=== PATIENT | male | born 1940 | race Caucasian/White ===

== ENCOUNTER 2019-02-27 16:01 | Inpatient (IN) ==
[2019-02-27] MEDS ORDERED: ATIVAN PO ONE (16:19)
--- NOTE | 2019-02-27 17:50 | Diag Imaging Result Doc PS360 ---
EXAM: XRAY HIP UNILATERAL RT - 02/27/2019 HISTORY: ground level fall, R hip pain TECHNIQUE: Portable right hip two views COMPARISON: None. FINDINGS: There is a questionable nondisplaced intertrochanteric fracture of the femur. There is no dislocation identified. There are mild degenerative changes. IMPRESSION: Questionable nondisplaced intertrochanteric fracture of right femur. Electronically signed by Steven Solomon 02/27/2019 5:48 PM
[2019-02-27] MEDS ORDERED: ZOFRAN IV ONE (18:08)
[2019-02-27] MEDS ORDERED: DILAUDID IV ONE (18:08)
--- NOTE | 2019-02-27 18:41 | PROVIDER DOCUMENTATION ---
This chart was entered by Edith Arellano Scribe, acting as scribe for Shade Tavarez MD. HPI-Musculoskeletal Pain/Inj - GENERAL Stated Complaint: FALL, RIGHT HIP PAIN Time Seen by Provider: 02/27/19 16:04 Source: patient - HX OF PRESENT ILLNESS-MUSKULOSKELTAL Nature of Presenting Problem: Patient is a 78 year old male who presents to the ED via EMS with right hip and right thigh pain. Patient states he lost his balance and fell down three stairs. Does not report head injury. States he was unable to ambulate after fall. Quality of Pain: reports: aching Severity in ED: mild Onset/Duration: just prior to arrival Timing: still present Any recent injury?: Yes (fall) Locality of Occurance: Home Similar Symptoms Previously?: No Recently seen or treated by another doctor?: No - FALL INJURY Location of Pain/Injury: reports: lower extremity (right thigh), other (right hip) Pain Radiation: reports: no radiation Reason for Fall: reports: lost balance Symptoms prior to fall:: reports: none Loss of Consciousness: no loss of consciousness Injury Associated Symptoms: reports: trouble walking - HIP/PELVIS PAIN/INJURY Hip Pain Location: reports: hip (R) Pain Radiation: reports: no radiation Context / Method of Injury: reports: fall Associated Symptoms: reports: denies symptoms - LOWER EXTREMITY PAIN/INJURY Lower Extremities Pain: hip: right, thigh: right Context / Method of Injury: reports: fell Associated Symptoms: reports: denies symptoms Review of Systems - Adult - REVIEW OF SYSTEMS - ADULT Constitutional: reports: no symptoms reported Eyes: reports: no symptoms reported Ears, Nose, Mouth & Throat: reports: no symptoms reported Cardiovascular: reports: no symptoms reported Respiratory: reports: no symptoms reported Gastrointestinal: reports: no symptoms reported Genitourinary: reports: no symptoms reported Musculoskeletal: reports: see HPI, other (right hip and right thigh pain). denies: back pain, muscle aches, neck pain Integumentary: reports: no symptoms reported Neurological: reports: no symptoms reported Psychiatric: reports: no symptoms reported Endocrine: reports: no symptoms reported Hematologic/Lymphatic: reports: no symptoms reported Allergic/Immunologic: reports: no symptoms reported All Other Systems: Reviewed and Negative Past History - Adult - PAST MEDICAL HISTORY-ADULT Review of Records: reports: Old Records Reviewed, Nursing Assessment Review, Medications Reviewed, Social history reviewed & non-contributory. Major Childhood Illnesses: reports: denies history Cardiovascular: reports: HTN Respiratory: reports: denies history Gastrointestinal: reports: denies history Obstetrical/Gynecological: reports: denies history Genitourinary: reports: denies history Musculoskeletal: reports: denies history Neurological: reports: denies history Psychiatric: reports: denies history Endocrine/Immune: reports: denies history Other Conditions: reports: denies history - PRIOR SURGERIES/PROCEDURES Surgical/Procedure History: reports: reviewed, not pertinent - IMMUNIZATION STATUS Childhood Immunizations: See Nurse Assessment Flu Vaccine: See Nurse Assessment - FAMILY HISTORY Family History: reviewed, not pertinent - SOCIAL HISTORY Smoking: cigarettes (former) Substance Use: denies Living Situation: family Physical Exam-Injury Related - Physical Exam-Injury Related Initial Vital Signs Reviewed: Yes General Appearance: alert, no apparent distress. negative: lethargic, slow to respond Head, Ears, Nose, Mouth & Throat: normocephalic/atraumatic, moist mucous membr anes. negative: angioedema, hearing deficit Respiratory: chest non-tender, lungs clear, normal breath sounds. negative: rhonchi, wheezing Cardiovascular: normal peripheral pulses, regular rate, rhythm. negative: tachycardia, systolic murmur Extremity: normal range of motion, non-tender, other (2 + posterior tibial pulse bilaterally). negative: deformity, erythema, swelling Integumentary: normal color, warm/dry. negative: ecchymosis, pallor, rash, abrasion, laceration Neurologic: grossly normal, other (resting tremors.). negative: aphasia, facial droop Psych/Mental Status: normal mood/affect, oriented x 3. negative: anxious Progress - PLAN OF CARE/RESULTS Progress/Plan/Lab Results: Laboratory Results - last 24 hr 02/27/19 02/27/19 02/27/19 18:40 18:40 18:40 WBC 7.98 RBC 4.60 L Hgb 14.4 Hct 40.3 L MCV 87.6 MCH 31.3 H MCHC 35.7 RDW Std Deviation 13.3 Plt Count 158 MPV 9.8 Immature Gran % (Auto) 0.3 Neut % (Auto) 63.6 Lymph % (Auto) 26.3 Coal % (Auto) 6.9 Eos % (Auto) 1.8 Baso % (Auto) 1.1 H Immature Gran # (Auto) 0.02 Neut # (Auto) 5.08 Lymph # (Auto) 2.10 Coal # (Auto) 0.55 Eos # (Auto) 0.14 Baso # (Auto) 0.09 PT 14.2 INR 1.02 PTT (Actin FS) 33.4 Sodium 144 Potassium 4.0 Chloride 107 Carbon Dioxide 27 Anion Gap 10 BUN 11 Creatinine 0.8 Estimated GFR/1.73 m2 > 60 BUN/Creatinine Ratio 14 Glucose 124 H Calculated Osmolality 288 Calcium 8.3 L Total Bilirubin 0.55 AST 16 ALT 18 Alkaline Phosphatase 76 Total Protein 6.1 L Albumin 3.8 Globulin 2.3 Albumin/Globulin Ratio 1.7 Orders Category Date Time Status Admit - [facility] Routine AdmDCTranf 02/27/19 22:28 Active Activity - Up with Assistance ORDERED Care 02/27/19 22:28 Active Intake and Output-Strict ORDERED Care 02/27/19 22:28 Active Nursing- MD Consult Request ROUTINE Care 02/27/19 22:28 Completed Vital Signs Order Q 8-HR ASSESS Care 02/27/19 22:28 Active Z-Document. for Tele Applied ORDERED Care 02/27/19 22:28 Completed Physician/Provider Consults Routine Cons 02/27/19 22:28 Ordered NPO Diet 02/28/19 00:[address] PELVIS W/O CONTRAST [CT] Stat Exams 02/27/19 18:10 Completed XRAY HIP UNILATERAL RT [RAD] Stat Exams 02/27/19 16:10 Completed CBC WITH DIFF [HEME] Stat Lab 02/27/19 18:40 Completed COMPREHENSIVE METABOLIC PANEL [CHEM] Stat Lab 02/27/19 18:40 Completed PT [PROTIME WITH INR] [COAG] Stat Lab 02/27/19 18:40 Completed PTT [COAG] Stat Lab 02/27/19 18:40 Completed Albuterol 2.5MG/Ipratrop 0.5MG [Duoneb (A & A)] Med 02/27/19 22:28 Active 3 ml INH Q4H PRN PRN Hydromorphone [Dilaudid] Med 02/27/19 18:08 Discontinued 0.5 mg IV NOW ONE Hydromorphone [Dilaudid] Med 02/27/19 22:28 Discontinued 0.5 mg IV Q4H PRN PRN Lorazepam [Ativan] Med 02/27/19 16:19 Discontinued 1 mg PO NOW ONE Ondansetron [Zofran] Med 02/27/19 18:08 Discontinued 4 mg IV NOW ONE Ondansetron [Zofran] Med 02/27/19 22:28 Active 4 mg IV Q4H PRN PRN Aerosol Treatments Routine Oth 02/27/19 22:28 Completed Aerosol Treatments Stat Oth 02/27/19 22:28 Completed Telemetry [OM.EQ] Routine Oth 02/27/19 22:28 Active Transfer/Admit Order [TRANSFER] Routine Transfer 02/27/19 20:39 Completed Result Diagrams: 02/27/19 18:40 02/27/19 18:40 - REASSESSMENT Reassessment #1 Time Reassessed: 06:20 Status: unchanged (Radiologist indeterminate re: ? intertroch fx on plain imaging: CT ordered. pt given analgesic per his request) Reassessment #2 Time Reassessed: 18:40 Status: unchanged (CT confirms intertroch fx: disc'd w/ Dr. Weaver who agreed to consult, Hospitalist to admit) - CHANGE OF SHIFT REPORT (ED Provider) 1 Report Given and Care Transferred to:: Dr. Case Time of Transfer: 19:00 Items Pending: Physician Consult/Arrival Departure - Departure Date of Disposition Decision: 02/27/19 Time of Disposition Decision: 18:48 DIAGNOSIS: Intertrochanteric fracture of right hip Disposition: ADMITTED INPATIENT 09 Certified Medical Emergency: Emergent Condition: Stable - Critical Care Note This patient required my direct & personal management of CC.: No Attestation - Physician/ HEBER Attestation The physician spent face to face time with patient:: Yes Advanced Practice Provider documentation review:: Supervising physician onsite and consulted in the evaluation and care of this patient. The physician did have a face to face encounter with the patient. This chart was documented by the indicated scribe, (Edith Arellano Scribe) and accurately reflects the services I performed and decisions made by me, Shade Tavarez MD, as attested by the provider's signature.
[2019-02-27 18:52] LABS: HEMOGLOBIN 14.4 g/dL (14.0-18.0); WBC 7.98 X1000 (4.8-10.8)
[2019-02-27 18:53] LABS: BASO# 0.09 X1000 (0.0-0.2); BASO% 1.1 % (0.0-0.8); EOS# 0.14 X1000 (0.0-0.7); EOS% 1.8 % (0.0-10.0); HEMATOCRIT 40.3 % (42.0-52.0); IMM GRAN# 0.02 X1000 (0.0-0.04); IMM GRAN% 0.3 % (0.0-0.5); LYMPH% 26.3 % (20.5-51.1); MCH 31.3 PG (27-31); MCHC 35.7 g/dL (33-37); MCV 87.6 FL (81-99); MONO# 0.55 X1000 (0.11-0.59); MONO% 6.9 % (1.7-9.3); MPV 9.8 FL (7.4-10.4); NEUT# 5.08 X1000 (1.4-6.5); NEUT% 63.6 % (42.2-75.2); PLT 158 X1000 (130-400); RDW 13.3 % (11.5-14.5)
--- NOTE | 2019-02-27 18:54 | Diag Imaging Result Doc PS360 ---
EXAM: CT PELVIS W/O CONTRAST - 02/27/2019 HISTORY: r.o right intertroch hip fx TECHNIQUE: CT bony pelvis without contrast COMPARISON: 02/27/2019 right hip radiographs FINDINGS: There is an intertrochanteric fracture of the right femur. The fracture does not appear substantially displaced. Between the trochanters, the fracture is primarily anteriorly located. There is no dislocation identified. There are mild degenerative changes at the bilateral hips. IMPRESSION: Intertrochanteric fracture of right femur. This exam was performed using automated exposure control, adjustment of mA or kV according to patient size, and/or use of iterative reconstruction technique. Electronically signed by Steven Solomon 02/27/2019 6:52 PM
[2019-02-27 19:01] LABS: INR 1.02; PROTIME 14.2 Seconds (11.0-16.0); PTT 33.4 Seconds (22.3-41.8)
[2019-02-27 19:26] LABS: AGAP 10; BUN 11 mg/dL (8-22); CALCIUM 8.3 mg/dL (8.8-10.2); CHLORIDE 107 mmol/L (98-107); COSMO 288; CREATININE 0.8 mg/dL (0.7-1.2); ESTIMATED GFR > 60; GLUCOSE 124 mg/dL (70-104); SODIUM 144 mmol/L (136-145); TCO2 27 mmol/L (25-35)
[2019-02-27 19:27] LABS: ALB/GLOB RATIO 1.7; ALBUMIN 3.8 g/dL (3.5-5.0); ALKALINE PHOSPHATASE 76 U/L (32-122); GOT 16 U/L (10-34); GPT 18 U/L (10-44); TOTAL BILIRUBIN 0.55 mg/dL (0.20-1.00); TOTAL PROTEIN 6.1 g/dL (6.3-8.3)
--- NOTE | 2019-02-27 22:05 | HISTORY AND PHYSICAL ---
PRIMARY CARE PHYSICIAN: Dr. Radha Urbano. CHIEF COMPLAINT: Status post fall, right hip region pain. HISTORY OF PRESENTING ILLNESS: A 78-year-old male, with a history of coronary artery disease, hypertension, essential tremors, who apparently fell off his doorstep. He states that he lost his balance and landed on his right hip region. He developed a moderate amount of pain. He was brought to the emergency department. He had imaging done which did show intertrochanteric fracture of the right femur. Case was discussed with Orthopedics who recommended admission for further management. At the time of my examination, patient denied any headache, fever, chills, chest pain, shortness of breath, hemoptysis, or any weight changes, but complained right hip region pain. PAST MEDICAL HISTORY: Includes: 1. Coronary artery disease. 2. Hypertension. 3. Essential tremors. PAST SURGICAL HISTORY: 1. Coronary stent. 2. Appendectomy. ALLERGIES: Plavix and IV dye. CURRENT MEDICATIONS: Include: 1. Albuterol inhaler q.4 hours. 2. Aspirin 325 mg p.o. daily. 3. Isosorbide mononitrate 30 mg p.o. b.i.d. 4. Primidone 100 mg p.o. b.i.d. 5. Propranolol 120 mg p.o. b.i.d. 6. Flomax 0.4 mg p.o. daily. 7. Tramadol 50 mg p.o. t.i.d. SOCIAL HISTORY: 60+ pack year history of smoking. Denies any history of alcohol or illicit drug use. FAMILY HISTORY: No history of coronary artery disease. REVIEW OF SYSTEMS: A 14 point review of systems is as in HPI. Other systems negative. PHYSICAL EXAMINATION: GENERAL: Cooperative, friendly male. He is resting more comfortably now. VITAL SIGNS: Temperature 98.4 degrees, pulse 59, respirations 18, blood pressure 170/71. HEENT: Extraocular movements intact. PERRLA. NECK: No masses. CHEST: Clear to auscultation. CARDIOVASCULAR: Regular rate and rhythm. ABDOMEN: Soft. Positive bowel sounds. EXTREMITY: Right hip region tenderness. NEUROLOGIC: He is awake, alert, oriented x3. : No bladder distention. SKIN: Warm. LABORATORIES AND STUDIES: WBC 7.98, hemoglobin 14.4, hematocrit 40.3, platelets 158,000. Sodium 144, potassium 4.0, chloride 107, CO2 27, BUN is 11, creatinine 0.8, glucose is 124. Pelvic CT shows intertrochanteric fracture of the right femur. ASSESSMENT: A 78-year-old male with a history of coronary artery disease, hypertension, and essential tremors, who apparently lost his balance and fell off his doorstep. He landed on his right hip region. He was brought to the emergency department. He had imaging done which did show intertrochanteric fracture of the right femur. His case was discussed with Orthopedics who recommended the patient be admitted for further management. ASSESSMENT: 1. Status post mechanical fall. 2. Intertrochanteric fracture of the right femur. 3. Coronary artery disease. 4. Hypertension. 5. Essential tremor. PLAN: 1. We will admit patient to medical floor with telemetry. 2. We will keep patient n.p.o. and do preoperative clearance. 3. Continue with adequate pain control. 4. We will consult Orthopedics. 5. We will hold his home medications for now. 6. We will start deep venous thrombosis prophylaxis after surgery. 7. We will continue to follow and reassess, and make further recommendations based on patient's clinical course. cc: Davonte Gutierrez MD
[2019-02-27] MEDS ORDERED: ZOFRAN IV PRN (22:28)
[2019-02-27] MEDS ORDERED: DUONEB (A & A) INH PRN (22:28)
[2019-02-27] MEDS: DILAUDID IV PRN (22:51)
[2019-02-28] MEDS: DILAUDID IV PRN ×2 (03:44→08:16)
[2019-02-28] MEDS ORDERED: STERILE WATER INJ. ONE (06:39)
--- NOTE | 2019-02-28 06:52 | ORTHOPAEDICS CONSULTATION ---
DATE: 02/28/2019 CLINICAL HISTORY: The patient is a pleasant 78-year-old male who is status post fall last evening. Patient states that he had both his hands full, he was walking up on the 3rd step, trying to open the door, slipped and fell, landing on his right hip. He developed immediate pain and discomfort. He denies loss of conscious. X-rays and CT scan revealed a right intertrochanteric femur fracture. Orthopedic consultation was requested. CURRENT MEDICATIONS: 1. Albuterol inhaler q.4 hours. 2. Aspirin 325 mg p.o. daily. 3. Isosorbide mononitrate 30 mg p.o. b.i.d. 4. Primidone 100 mg p.o. b.i.d. 5. Propranolol 120 mg p.o. b.i.d. 6. Flomax 0.4 mg p.o. daily. 7. Tramadol 50 mg p.o. t.i.d ALLERGIES: Plavix and IV dye. PAST MEDICAL HISTORY: 1. Coronary artery disease. 2. Hypertension. 3. Essential tremors. PAST SURGICAL HISTORY: 1. Coronary stent. 2. Appendectomy. PHYSICAL EXAMINATION: General: Patient is awake, alert, and cooperative with exam. Extremities: His bilateral upper extremities have nontender to palpation throughout, the shoulder, elbows, wrists, and fingers. Able to perform active range of motion. His left lower extremity has no palpable deformity. He is nontender to palpation along the knee or ankle. His calf is soft. He has active dorsiflexion plantar flexion. Right hip has tenderness to palpation, tenderness with gentle movement. He has no intra-articular effusion. Calf is soft. He has active dorsiflexion, plantar flexion. IMAGING: X-rays of the right hip reveal a nondisplaced right intertrochanteric femur fracture. CT scan confirmed the diagnosis with no displacement. IMPRESSION: Right intertrochanteric femur fracture. PLAN: Discussed treatment options with the patient. At this time would recommend proceeding with intramedullary nailing right femur. Risks, benefits of surgery were explained, including the risks of anesthesia, , bleeding, infection, failure to relieve pain, postoperative stiffness, nerve injury, blood clots, and other imponderables. All questions were answered. The patient and family agree with treatment plan. cc: Jeff Weaver MD
[2019-02-28] MEDS ORDERED: KEFZOL 2 GM/D5W 2 GM/50 ML IVPB ONE (07:11)
[2019-02-28] MEDS ORDERED: DIPRIVAN 1% ONE (08:50)
[2019-02-28] MEDS ORDERED: XYLOCAINE-MPF 2% ONE (08:50)
[2019-02-28] MEDS ORDERED: ZOFRAN ONE (09:27)
[2019-02-28] MEDS ORDERED: OFIRMEV 1000 MG/ISOTONIC SOLN 1,000 MG/100 ML BOTTLE ONE (09:28)
[2019-02-28] MEDS ORDERED: FENTANYL ONE (09:43)
[2019-02-28] MEDS ORDERED: NS 1,000 ML ONE (10:16)
[2019-02-28] MEDS: DILAUDID ONE ×2 (10:28→10:32)
--- NOTE | 2019-02-28 11:14 | OPERATIVE NOTE ---
PROCEDURE DATE: 02/28/2019 PREOPERATIVE DIAGNOSIS: Right intertrochanteric femur fracture. POSTOPERATIVE DIAGNOSIS: Right intertrochanteric femur fracture. PROCEDURE: Intramedullary nailing right femur with Synthes trochanteric femur 11 x 400 mm nail. SURGEON: Dr. Jeff Weaver. ANESTHESIA: General. IV FLUIDS: 1500 mL lactated Ringer's. ESTIMATED BLOOD LOSS: 100 mL. COMPLICATIONS: None. INDICATION: The patient is a pleasant 78-year-old male who is 1 day status post fall sustaining a right intertrochanteric femur fracture. He is admitted to the hospital, and recommendation to proceed with intramedullary nailing was offered. Risks and benefits of surgery were explained, including the risks of anesthesia, , bleeding, infection, failure to relieve pain, postoperative stiffness, nerve injury, blood clots and other imponderables. All questions were answered. Patient and family wished to proceed with surgery. DETAILS OF OPERATION: Patient was taken to the operating room and placed supine on the operating table. Once adequate anesthesia was obtained, the patient was placed on the fracture table. Right lower extremity was subsequently prepped and draped in the usual sterile fashion. Approximately 3 fingerbreadths proximal to the greater trochanter a lateral incision was made. The incision was carried through into subcutaneous tissue. A guide pin was then placed on the tip of the greater trochanter and was advanced in the intramedullary canal. Good position was confirmed with C-arm visualization. A starting reamer was then passed. A ball-tipped guide pin was then placed and length of the nail was determined to be 400 mm. After this had been performed, sequential reaming was conducted up to size 12.5 mm. An 11 x 400 mm nail was then placed over the ball-tipped guide pin. The ball-tipped guide pin was removed. Using the outrigger guide, an incision was made on the lateral proximal femur. Guide pin was placed on the lateral proximal cortex. Guide pin was then advanced across the fracture site in the femoral neck and head. Good position was confirmed with C-arm visualization. Lateral cortex was drilled. A 105 mm helical blade was then advanced and good purchase appeared. The proximal set screw was tightened. Using perfect [place] technique, the proximal static locking screw was passed from medial and lateral through a stab incision. Good purchase was obtained. Final C-arm visualization revealed good alignment of the fracture, good position of the hardware. The wounds were copiously irrigated. A #1 Vicryl was used to repair the gluteus marta; also the deep fascia proximal wound. A 2-0 Vicryl was then placed in 2 proximal wounds and skin dasha placed in all the wounds. Adaptic, sterile 4 x 4s, and tape were applied to the right lower extremity. The patient tolerated the procedure well. No complications. Transferred to recovery room in stable condition. cc: Jeff Weaver MD
[2019-02-28] MEDS ORDERED: ZOFRAN IV PRN (11:39)
[2019-02-28] MEDS ORDERED: MILK OF MAGNESIA PO PRN (11:39)
[2019-02-28] MEDS ORDERED: MORPHINE IV PRN (11:39)
[2019-02-28] MEDS ORDERED: HALDOL IV PRN (11:45)
[2019-02-28] MEDS: OXY IR PO PRN (17:06)
[2019-02-28] MEDS: TYLENOL PO SCH (17:07)
[2019-02-28] MEDS: KEFZOL 2 GM/D5W 2 GM/50 ML IVPB IV SCH (17:07)
--- NOTE | 2019-02-28 17:35 | PROGRESS NOTE ---
DATE: 02/28/2019 Today Mr. Ledezma refers to be doing a little better. He still in some pain. He underwent intramedullary nailing of the right femur due to a right intertrochanteric femur fracture with Dr. Weaver early this morning. OBJECTIVE: His current vitals blood pressure 143/52, pulse of 77, respiration is 19, temperature 97.3 degrees.General: Mr. Ledezma is a 78-year-old gentleman he is in bed, he is not in any cardiopulmonary distress. Mucosa is pink and moist. Anicteric. Acyanotic. Neck: Supple. Chest: Good air entry bilateral. There was no crepitation, no rhonchi. Cardiovascular: Regular rate and rhythm. No murmurs, no rubs, no gallops. Abdomen: Soft. There is an old right lower abdomen scar due to previous appendectomy. Extremities: No pedal edema. Distal pulses are present. The right lower extremity is minimally rotated. The hip has a new sterile dressing over the lateral aspect of the hip from recent surgery. FOOD BEVERAGE SUPERVISOR: Patient is awake, alert, follows commands. The patient was at the bedside at the time of the encounter. LABORATORY DATA: Has been reviewed from yesterday. Imaging studies have also been reviewed. ASSESSMENT: 1. Status post mechanical fall resulting into a right intertrochanteric fracture. Patient is status post intramedullary nailing by Dr. Weaver today. We are going to continue with current management, adequate pain control and consult physical therapy and social work tomorrow. 2. History of coronary artery disease currently asymptomatic. 3. Hypertension. 4. Essential tremor. So in general I think Mr. Ledezma is doing a lot better still hurting but much better than before the surgery. He is immediate postop. We going to continue with gentle hydration, adequate pain management and consult social work and physical therapy tomorrow. cc: Vik Allen MD [facility]
[2019-02-28] MEDS: PERIDEX MT SCH (21:57)
[2019-02-28] MEDS: COLACE PO SCH (21:57)
[2019-03-01] MEDS: KEFZOL 2 GM/D5W 2 GM/50 ML IVPB IV SCH (00:31)
[2019-03-01] MEDS: OXY IR PO PRN ×3 (00:31→08:08)
[2019-03-01] MEDS: NS 1,000 ML IV SCH ×3 (00:33→16:10)
[2019-03-01] MEDS: TYLENOL PO SCH ×3 (04:40→16:11)
[2019-03-01 06:49] LABS: HEMATOCRIT 38.1 % (42.0-52.0); HEMOGLOBIN 13.4 g/dL (14.0-18.0)
[2019-03-01 06:51] LABS: AGAP 9; BUN 6 mg/dL (8-22); CHLORIDE 103 mmol/L (98-107); COSMO 275; CREATININE 0.7 mg/dL (0.7-1.2); ESTIMATED GFR > 60; GLUCOSE 137 mg/dL (70-104); POTASSIUM 3.1 mmol/L (3.5-5.1); SODIUM 138 mmol/L (136-145); TCO2 26 mmol/L (25-35)
[2019-03-01] MEDS: XARELTO PO SCH (07:20)
[2019-03-01] MEDS ORDERED: KLOR-CON PO ONE (08:13)
[2019-03-01] MEDS: PERIDEX MT SCH (09:08)
[2019-03-01] MEDS: FERROUS SULFATE PO SCH (09:08)
--- NOTE | 2019-03-01 09:43 | ORTHOPAEDICS PROGRESS NOTE ---
DATE: 03/01/2019 SUBJECTIVE: The patient is a pleasant, 78-year-old male, who is 1 day status post intramedullary nailing of the right femur for intertrochanteric femur fracture. He is currently resting comfortably. OBJECTIVE: The patient's dressing is intact. His calf is soft. He has active dorsiflexion and plantar flexion. LABORATORY DATA: His hemoglobin is 13.4, hematocrit is 38.1. IMPRESSION: Postoperative day #1, status post intramedullary nailing of the right femur. PLAN: At this point, the patient will progress with physical therapy, weight bear as tolerated on the right lower extremity. Will consult Weight Trainer for discharge planning. cc: Jeff Weaver MD
--- NOTE | 2019-03-01 11:53 | PROGRESS NOTE ---
DATE: 03/01/2019 SUBJECTIVE: This morning, Mr. Ledezma refers to be doing fairly okay. Denies any new complaints. OBJECTIVE: Vitals: Blood pressure is 133/69, pulse of 93, respirations 20, temperature is 98.1 degrees. General: Patient has a daughter at the bedside at the time of the encounter. On general exam, Mr. Ledezma is a 78-year-old gentleman. He is in bed, no distress. Mucosa is pink and moist. Anicteric. Acyanotic. Neck is supple. Chest: Clear to auscultation. No crepitations. No rhonchi. Cardiovascular: Regular rate and rhythm. Abdomen: Soft. Nontender. Bowel sounds present. There is an old right lower quadrant scar due to previous appendectomy. Extremities: No pedal edema. The right lower extremity still has sterile dressing over the surgical sites which look clean. The patient is neurovascularly intact on the right lower extremity. Central Nervous System: Patient is awake, alert, and oriented. DIAGNOSTIC STUDIES: Hemoglobin is 13.4. Chemistry is also reviewed, potassium is 3.1. MEDICATION: The rest of the patient's medications have all been reviewed. ASSESSMENT: 1. Status post mechanical fall resulting into a right intertrochanteric fracture. Patient is status post intramedullary nailing by Dr. Weaver. Today is day 1 postoperatively. Seems to be doing well. Physical Therapy has been consulted. 2. History of coronary artery disease, currently asymptomatic. We will continue with home medications. 3. Hypertension, controlled. 4. Essential tremor. 5. Hypokalemia. We will replace this. DISPOSITION: Social Work has been consulted for rehabilitation placement, and family has been made aware. cc: Vik Allen MD
[2019-03-02] MEDS: OXY IR PO PRN ×4 (00:05→16:47)
[2019-03-02] MEDS: PERIDEX MT SCH ×3 (00:05→21:20)
[2019-03-02] MEDS: COLACE PO SCH ×2 (00:05→21:20)
[2019-03-02] MEDS: TYLENOL PO SCH ×3 (02:35→16:47)
[2019-03-02 06:39] LABS: HEMOGLOBIN 12.4 g/dL (14.0-18.0)
[2019-03-02] MEDS: NS 1,000 ML IV SCH ×2 (06:45→21:21)
[2019-03-02] MEDS: XARELTO PO SCH (06:45)
--- NOTE | 2019-03-02 07:44 | ORTHOPAEDICS PROGRESS NOTE ---
DATE: 03/02/2019 SUBJECTIVE: The patient is a pleasant, 78-year-old male, who is 2 days status post intramedullary nailing, left femur. He is resting well this morning. OBJECTIVE: His right lower extremity dressing is intact. Calf is soft. He has active dorsiflexion and plantar flexion. LABORATORY DATA: Hemoglobin 12.4, hematocrit 36.0. IMPRESSION: Postoperative day #2 status post intramedullary nailing of the right femur. PLAN: At this point, will continue to progress with physical therapy. Will weight bear as tolerated on the right lower extremity. Inventory And Pricing Associate has been consulted for discharge planning. cc: Jeff Weaver MD
--- NOTE | 2019-03-02 09:14 | EKG Report ---
Test Performed on : 03/02/2019 08:45:15 AM Test Reason : Afib Blood Pressure : / mmHG Vent. Rate : 098 BPM Atrial Rate : 392 BPM P-R Int : 000 ms QRS Dur : 082 ms QT Int : 344 ms P-R-T Axes : 000 010 015 degrees QTc Int : 439 ms Atrial flutter. with variable AV block. Abnormal ECG When compared with ECG of 01-MAR-2019 20:36, (Unconfirmed) Atrial flutter. has replaced Atrial fibrillation. Nonspecific T wave abnormality no longer evident in Anterior leads Confirmed by Leroy SCHMID, Alvaro Mesa ([id number]) on 03/03/2019 7:28:36 PM
[2019-03-02] MEDS: FERROUS SULFATE PO SCH (10:40)
--- NOTE | 2019-03-02 10:40 | EKG Report ---
Test Performed on : 03/01/2019 8:36:07 PM Test Reason : NO EKG ORDER FOR MUSE Blood Pressure : / mmHG Vent. Rate : 079 BPM Atrial Rate : 208 BPM P-R Int : 000 ms QRS Dur : 084 ms QT Int : 370 ms P-R-T Axes : 000 010 011 degrees QTc Int : 424 ms Atrial fibrillation. Nonspecific T wave abnormality Abnormal ECG When compared with ECG of 16-SEP-2017 22:29, Nonspecific T wave abnormality now evident in Anterior leads Confirmed by Leroy SCHMID, Alvaro Mesa ([id number]) on 03/03/2019 7:28:08 PM
[2019-03-02] MEDS: CARDIZEM PO SCH ×3 (10:47→21:20)
[2019-03-02 11:13] LABS: AGAP 12; ALBUMIN 2.9 g/dL (3.5-5.0); BUN 6 mg/dL (8-22); CALCIUM 7.9 mg/dL (8.8-10.2); CHLORIDE 106 mmol/L (98-107); COSMO 286; CREATININE 0.6 mg/dL (0.7-1.2); ESTIMATED GFR > 60; GLUCOSE 119 mg/dL (70-104); PHOSPHORUS 2.2 mg/dL (2.7-4.5); POTASSIUM 3.6 mmol/L (3.5-5.1); SODIUM 144 mmol/L (136-145); TCO2 26 mmol/L (25-35)
--- NOTE | 2019-03-02 18:03 | Diag Imaging Result Doc PS360 ---
CHEST-PORTABLE - 03/02/2019 INDICATION: REHAB PLACEMENT COMPARISON: 09/26/2017 FINDINGS: Lung volumes are critically low. There is nonspecific central crowding. Infiltrates are not excluded. IMPRESSION: Nondiagnostic. Electronically signed by Alan Birmingham 03/02/2019 6:01 PM
[2019-03-03] MEDS: TYLENOL PO SCH ×2 (01:14→08:42)
[2019-03-03] MEDS: CARDIZEM PO SCH ×3 (01:15→14:22)
[2019-03-03] MEDS ORDERED: XARELTO PO SCH (06:00)
[2019-03-03 06:08] LABS: HEMATOCRIT 35.1 % (42.0-52.0); HEMOGLOBIN 12.1 g/dL (14.0-18.0)
[2019-03-03 06:33] LABS: AGAP 11; ALBUMIN 2.9 g/dL (3.5-5.0); BUN 8 mg/dL (8-22); CALCIUM 8.3 mg/dL (8.8-10.2); CHLORIDE 107 mmol/L (98-107); COSMO 287; CREATININE 0.6 mg/dL (0.7-1.2); ESTIMATED GFR > 60; GLUCOSE 131 mg/dL (70-104); PHOSPHORUS 2.2 mg/dL (2.7-4.5); POTASSIUM 3.3 mmol/L (3.5-5.1); SODIUM 144 mmol/L (136-145); TCO2 26 mmol/L (25-35)
--- NOTE | 2019-03-03 07:31 | EKG Report ---
Test Performed on : 03/03/2019 07:05:57 AM Test Reason : afib Blood Pressure : / mmHG Vent. Rate : 097 BPM Atrial Rate : 101 BPM P-R Int : 000 ms QRS Dur : 084 ms QT Int : 360 ms P-R-T Axes : 000 018 026 degrees QTc Int : 457 ms Atrial fibrillation. Abnormal ECG When compared with ECG of 02-MAR-2019 08:45, (Unconfirmed) Atrial fibrillation. has replaced Atrial flutter. Confirmed by Leroy SCHMID, Alvaro Mesa ([id number]) on 03/03/2019 7:29:33 PM
[2019-03-03] MEDS: PERIDEX MT SCH (08:42)
[2019-03-03] MEDS: FERROUS SULFATE PO SCH (08:42)
[2019-03-03] MEDS ORDERED: KLOR-CON PO ONE (10:13)
[2019-03-03] MEDS ORDERED: SODIUM PHOSPHATE 35 MMOL in NS 250 ML IV ONE (10:13)
[2019-03-03] MEDS ORDERED: FLOMAX PO SCH (10:45)
--- NOTE | 2019-03-03 13:53 | DISCHARGE SUMMARY ---
ADMISSION DATE: 02/27/2019 DISCHARGE DATE: 03/03/2019 PRIMARY CARE PHYSICIAN: Dr. Radha Urbano. ADMISSION DIAGNOSIS: 1. Status post mechanical fall. 2. Intertrochanteric fracture of the right femur. 3. Coronary artery disease. 4. Hypertension. 5. Essential tremor. DISCHARGE DIAGNOSIS: 1. Status post mechanical fall. 2. Intertrochanteric fracture of the right femur status post intramedullary nailing per Orthopedics. 3. Coronary artery disease. 4. Hypertension. 5. Essential tremor. SUMMARY OF FINDINGS: This is a 78-year-old male, who states he lost his balance and landed on his right hip region, developed moderate amount of pain and was brought in to the emergency room, had imaging done that showed an intertrochanteric fracture of the right femur. Discussed with Orthopedics, who recommended admission and further management, had an intramedullary nailing of the right femur by Orthopedics and has done well status post his surgery with Physical Therapy consulted, and it is now felt that he can safely be discharged to rehab. DISCHARGE MEDICATIONS: Will include Colace 200 mg p.o. at bedtime, ferrous sulfate 325 mg p.o. daily with breakfast, Dtdr-zq-Vuotfefe 30 mL daily p.r.n., OxyIR 5 mg p.o. q.3 hours p.r.n., diltiazem 180 mg p.o. daily, isosorbide 30 mg p.o. b.i.d., Primidone 100 mg p.o. b.i.d, and Xarelto 20 mg p.o. daily. Following completion of his rehab stay, he will need to follow up with his primary care physician, with Orthopedics, and with Cardiology, call their offices to schedule an appointment once rehab is complete. Dictated by CON Morle for Jordan Forman MD Addendum: Patient seen and examined by myself. Agree with CON note. It reflects my assessment and plan. Patient is being discharged from hospital in stable condition to rehab. Will be seen by primary care doctor in a week. cc: CON Morel MD Lindsay E. Smith, MD [facility]
[2019-03-03 16:34] VITALS: BP 131/59
--- NOTE | 2019-03-04 11:57 | PROGRESS NOTE ---
DATE: 03/02/2019 SUBJECTIVE: This morning, Mr. Ledezma refers to be doing fairly okay. There is a female family member at the bedside at the time of the encounter. OBJECTIVE: Vital Signs: Blood pressure is 133/76, pulse of 88, respirations 20, temperature is 97.5 degrees, the patient was saturating 99% on 3 L. General: Mr. Ledezma is a 72-year-old male. He was in bed, did not seem to be in any cardiopulmonary distress. HEENT: Mucosa is pink and moist. Anicteric. Acyanotic. Neck: Supple. Chest: Good air entry bilaterally. There were no crepitations, no rhonchi. Cardiovascular: Irregularly irregular, but rate controlled. GI: Abdomen is soft, nontender. Bowel sounds are present. There is an old scar at the right lower quadrant, which is consistent with a previous appendectomy. Extremities: No pedal edema. The right hip has a fresh dressing over the surgical wound. The right lower extremity is neurovascularly intact. C[employer]IAN [employer] OFFICER: The patient is awake, alert. LABORATORY AND DIAGNOSTIC DATA: Hemoglobin is 12.4. Chemistry is also reviewed, which is completely normal, except for phosphorus which is slightly reduced. An EKG this morning shows atrial flutter with variable blocks. ASSESSMENT: 1. Status post mechanical fall, resulting in a right intertrochanteric fracture. The patient is status post intramedullary nailing by Dr. Weaver today, day 2 postoperative. The patient is doing well. Physical Therapy has been consulted. 2. Paroxysmal atrial fibrillation/atrial flutter with variable conduction. The patient has been started on Cardizem by mouth. Cardiology has been consulted as well. We will also replace all his electrolytes abnormalities. 3. Hypertension, controlled. 4. History of essential tremor. Noted. 5. Electrolyte abnormality, including hypophosphatemia and hypokalemia. Will continue to replace these. In general, Mr. Ledezma got admitted on 02/27/2019 after sustaining a fall and injuring the right hip. He was diagnosed with a right intertrochanteric femur fracture, underwent surgical intervention, and he seems to have been doing well overall. However, early this morning, he went into atrial fibrillation, but rate controlled. Later on, an electrocardiogram did show atrial flutter. He has been started on oral Cardizem, and Cardiology has evaluated the patient, and will follow up with further recommendations from them. The patient's TSH is normal, and will continue to replace his electrolyte abnormalities. Mr. Ledezma is being evaluated for rehab placement, and Social Work is aware. cc: Vik Allen MD
--- NOTE | 2019-03-04 15:30 | CONSULTATION ---
DATE OF CONSULTATION: 03/02/2019 IMPRESSION: 1. Postoperative atrial fibrillation initially manifest late last night. Heart rate controlled. Patient asymptomatic. 2. Status post recent fall with right femur fracture requiring open reduction and internal fixation. There was no syncope. 3. Atherosclerotic coronary artery disease with previous coronary angioplasty/stent in 2008. The patient continues without angina. 4. Hypertension. 5. Tremor felt to be essential in nature. RECOMMENDATIONS: 1. Continue beta-ko, propranolol. 2. Increase Xarelto to 20 mg p.o. daily. 3. If atrial fibrillation persists, will consider initiating antiarrhythmic therapy. 4. Echocardiography. HISTORY: This 78-year-old white male with past history of atherosclerotic coronary artery disease, hypertension, chronic tremor felt to be essential in nature, and previous cigarette use in the past was recently admitted after he suffered a fall without loss of consciousness. He voiced that he has not been well for the past week or so due to gastroenteritis. He has been feeling somewhat weak. He mowed the [employer] lawn on Saturday. He was returning to home afterwards and was carrying a few items. As he went up 2 steps and opened his door to his home, he fell backwards without loss of consciousness and injured his right upper leg. He was found to have a femur fracture and had open reduction and internal fixation performed. Last night, he was noted to into atrial fibrillation. Rate has been controlled. For this reason, Cardiology was consulted. He denies any chest pain or shortness of breath. He has had some transient postural lightheadedness as he tried to get up since his surgery. There has been no palpitations. He is not aware of any previous atrial fibrillation. PAST MEDICAL HISTORY: 1. Atherosclerotic coronary artery disease with previous coronary angioplasty/stenting in 2008. 2. Hypertension. 3. Tremor felt to be essential in nature. PAST SURGICAL HISTORY: Includes previous appendectomy. ALLERGIES: He is allergic or intolerant to Plavix and intravenous contrast dye. MEDICATIONS PRIOR TO ADMISSION: As listed. SOCIAL HISTORY: He is . He has a 60+ year history of smoking. He denies alcohol use. FAMILY HISTORY: Negative for premature coronary artery disease. REVIEW OF SYSTEMS: Pulmonary: Noncontributory. Gastrointestinal: Noteworthy for recent gastroenteritis symptoms. Constitutional: Noncontributory beyond history of present illness. The remainder of the review of systems negative/noncontributory beyond history of present illness with 14 total system reviewed. PHYSICAL EXAMINATION: General: This is a pleasant elderly white male in no distress. Vital signs: Blood pressure 155/75, heart rate 93, oxygen saturation 94% to 99% on nasal cannula oxygen. HEENT exam: Extraocular muscles appear intact. Mucous membranes are moist. Neck: Supple without jugular venous distention. There are no carotid bruits. Chest: Clear to auscultation. Cardiac exam: Reveals an irregular rate and rhythm without appreciable murmur or gallop. Abdomen: Soft. Bowel sounds are normal. Extremities: Without edema. Neurologic: Reveals him to be alert and responsive. He is oriented to person, place, and time. He moves all 4 extremities equally well. Speech is fluent. Tremor of upper extremities is evident. EKG demonstrates atrial fibrillation. LABORATORY DATA: Includes a sodium of 144, potassium 3.6, chloride 106, carbon dioxide 26, BUN 6, creatinine 0.6, glucose 119. TSH 1.01. cc: Pro Stevens MD
== END 2019-03-03 18:26 | DRG 481 ==
LOC: SUPCPDRO → ED 16:01 → SUATTDRO 21:28 → 4N 21:28
PROVIDERS: ATTEND Internal Medicine
CPT/HCPCS: 71010; 71045; 72192; 73502; 76000; 80048; 80053; 80069; 84443; 85014; 85018; 85025; 85610; 85730; 93005; 93010; 94640; 94761; 94799; 96374; 96375; 97110; 97116; 97163; 97530; 99285; A9270; J0131; J0690; J1170; J2270; J2405; J3010; J7030; J7050